=== PATIENT | female | born 1995 | race Caucasian/White ===

== ENCOUNTER → 2018-05-09 | Outpatient (CLI) | payer OTHER ==
--- NOTE | 2018-05-09 11:28 | REP ---
Chest two views HISTORY: Cough Comparison: None The lungs are clear. The heart is normal in size. The pulmonary vasculature is normal in appearance. The bony structure is intact. IMPRESSION: No acute disease. Electronically Signed by Honorio Jaime MD 05/09/2018 11:20 A
== END ==
LOC: M LRY 11:07
PROVIDERS: ATTEND Nurse Practitioner Family
DX: R05 Cough (principal)
CPT/HCPCS: 71046; G0463

== ENCOUNTER → 2019-01-22 | Outpatient (REF) | payer OTHER ==
[2019-01-22 21:13] LABS: CHLAMYDIA DNA AMPLIFICATION NEGATIVE (NEGATIVE); GC DNA AMPLIFICATION NEGATIVE (NEGATIVE)
== END ==
LOC: M SFHCLERA 15:21
PROVIDERS: ATTEND Nurse Practitioner Family
DX: N89.8 Other specified noninflammatory disorders of vagina (principal)
CPT/HCPCS: 81002; 81025; 87070; 87086; 87252; 87661; G0463

== ENCOUNTER → 2021-01-25 | Outpatient (CLI) | payer OTHER ==
--- NOTE | 2021-01-25 17:38 | REP ---
INDICATION: IUD LOCATION. COMPARISON: None. TECHNIQUE: Transabdominal and transvaginal 2D ultrasound evaluation of the pelvis was performed. FINDINGS: The uterus measures 8.5 x 6.4 x 4.3 cm. There is an IUD in good position in the uterine cavity. The endometrium measures 6 mm in thickness. The right ovary measures 3.2 x 2.9 x 2.9 cm and contains a complex cyst with debris measuring 2.2 x 2.1 x 2.0 cm. The left ovary measures 1.9 x 1.3 x 1.0 cm. There is no free fluid the pelvis. IMPRESSION: 1. IUD is in good position in the uterine cavity. 2. Complex cyst right ovary. <Electronically signed by Trey Piña > 01/25/21 [id number]
== END ==
LOC: M RAD 16:20
PROVIDERS: ATTEND Nurse Practitioner Adult Health
DX: Z30.431 Encounter for routine checking of intrauterine contraceptive device (principal)